=== PATIENT | female | born 2000 | race Caucasian/White ===

== ENCOUNTER 2024-07-27 19:11 | Emergency (ER) | payer OTHER, SELFPAY ==
[2024-07-27 19:11] VITALS: BMI 20.9
[2024-07-27 19:21] VITALS: BP 149/92
--- NOTE | 2024-07-27 19:21 | ED.GENMED ---
ED Provider Triage
<Edson Devries PA-C - Last Filed: 07/27/24 19:22>
-
Patient seen by provider in Triage?: Seen in Triage
Attestation: A medical screening examination has been initiated by a qualified medical provider. Based on the assessment performed at this time, it has been determined that an emergent medical condition may exist and the patient has been informed
that further medical evaluation and possible additional diagnostic testing may be needed.
HPI: 23-year-old female with past medical history of migraines presenting to the emergency department for migraine that is not relieved with her Emgality and Nurtec. Patient has a follow-up visit with neurologist on the but she has had a
gradually worsening headache for the last 3 days so decided come to the ER today. Only other associated symptoms of sensation of feeling flushed. No other concerns. Patient otherwise currently without focal neurologic deficits.
GENERAL: Alert , in no apparent distress
EYE: No visual abnormalities.
NECK: Trachea midline
ENT: No visible abnormalities.
LUNGS: No acute respiratory distress
NEUROLOGICAL: Alert and oriented
SKIN: Skin intact. No visible changes.
MUSCULOSKELETAL: Moving extremities normally
PSYCH: Normal and appropriate interaction.
This is a medical evaluation conducted in person to initiate diagnostic evaluation and provide initial therapeutics. Please see further documentation by the treating clinician.
History of Present Illness
<Edson Devries PA-C - Last Filed: 07/27/24 19:22>
General
Chief Complaint: Headache
Time Seen by Provider: 07/27/24 21:26
<Phil Cedlilo PA-C - Last Filed: 07/27/24 23:43>
History of Present Illness
History of Present Illness:
23-year-old female with history of chronic migraines on Emgality and Nurtec presents to the emergency department for evaluation of a persistent migraine for the past 3 days. Headache is associated with occasional visual lapses in the right eye as
well as right arm numbness. This is a consistent symptom for her however she notes nausea and hot flashes which are atypical. She has taken her Nurtec without relief. Denies any additional use of ifle-thc-nmltvlm medications. No fever, neck
pain, or vomiting.
Past History
<Edson Devries PA-C - Last Filed: 07/27/24 19:22>
Past History
ED Past Medical History: Psychiatric and Other (Bronchitis, migraine headaches)
ED Past Surgical History: None
Social History
Tobacco: Non-smoker
Alcohol: None
Personal: Single
Living: with family
Employment: Employed
Family History
Family History: Other (Noncontributory)
Review of Systems
<Phli Cedillo PA-C - Last Filed: 07/27/24 23:43>
Review of Systems
Allergies reviewed?: Yes
All Other Systems: ROS reviewed and negative except as documented in HPI and ROS
Phy Exam
<Phil Cedillo PA-C - Last Filed: 07/27/24 23:43>
Physical Exam
Physical Exam:
GEN: Well appearing, NAD, WDWN
HEENT: Oral mucosa moist, no scleral icterus, no nasal congestion
Cardiac: Regular rate
Lung: No respiratory distress, no tachypnea
MSK: No gross deformity or injuries
Skin: Good color, no pallor or jaundice, no rashes
Neuro: AO x3; CN II-XII grossly intact. BUE strength 5/5 in all andujar, sensation intact and symmetric. BLE strength 5/5 in all andujar, sensation intact and symmetric
Psych: Calm, cooperative
Course
<AMANDA Hilliard Last Filed: 07/27/24 19:22>
Orders/Labs/Results
Orders:
Orders
07/27/24 22:06
0.9% Sodium Chloride 500 ml [Nss] 500 ml IV BOLUS
Ketorolac [Toradol] 15 mg IV NOW STA
Magnesium Sulfate 2 Gram/50 ml [Magnesium Sulfate] 2 gram in 50 ml IV NOW
Metoclopramide [Reglan] 10 mg IV NOW STA
Vital Signs
Initial and Last Documented VS:
Initial Vital Signs
Temp Pulse Resp BP Pulse Ox
99.4 F 111 18 149/92 98
07/27/24 19:21 07/27/24 19:21 07/27/24 19:21 07/27/24 19:21 07/27/24 19:21
Last Documented Vital Signs
Temp Pulse Resp BP Pulse Ox
99.4 F 111 18 120/74 97
07/27/24 19:21 07/27/24 19:21 07/27/24 21:43 07/27/24 21:43 07/27/24 21:43
<Phil Cedillo PA-C - Last Filed: 07/27/24 23:43>
Orders/Labs/Results
Orders:
Orders
07/27/24 22:06
0.9% Sodium Chloride 500 ml [Nss] 500 ml IV BOLUS
Ketorolac [Toradol] 15 mg IV NOW STA
Magnesium Sulfate 2 Gram/50 ml [Magnesium Sulfate] 2 gram in 50 ml IV NOW
Metoclopramide [Reglan] 10 mg IV NOW STA
Vital Signs
Initial and Last Documented VS:
Initial Vital Signs
Temp Pulse Resp BP Pulse Ox
99.4 F 111 18 149/92 98
07/27/24 19:21 07/27/24 19:21 07/27/24 19:21 07/27/24 19:21 07/27/24 19:21
Last Documented Vital Signs
Temp Pulse Resp BP Pulse Ox
99.4 F 111 18 120/74 97
07/27/24 19:21 07/27/24 19:21 07/27/24 21:43 07/27/24 21:43 07/27/24 21:43
<Pihl Cedillo PA-C - Last Filed: 07/27/24 23:43>
MDM/Problems Addressed
MDM/Problems Addressed:
Patient presenting with typical migraine symptoms treated with standard migraine cocktail with resolution of symptoms. Recommend outpatient follow-up with her neurologist if symptoms are recurrent
<Phil Cedillo PA-C - Last Filed: 07/27/24 23:43>
*Critical Care Note
Total Time (30-74mins, 75-104mins- exclusive of procedures): Not Applicable
ED Attending Note
<Edson Devries PA-C - Last Filed: 07/27/24 19:22>
-
Portions of this chart may have been created with voice recognition software.� Occasional wrong word or��sound alike� substitutions may have occurred due to the inherent limitations of voice recognition software.
Discharge Plan
Departure
Patient Disposition: Home (Routine Discharge)
Date of Disposition: 07/27/24
Time of Disposition: 23:27
Patient with high blood pressure during this ER visit?: No
Discharge Problem:
Migraine
Instructions: Migraines (DC)
Prescriptions:
No Action
drospirenone-ethinyl estradiol 3-0.03 mg Tablet
1 tab PO DAILY
metoprolol tartrate 25 mg tablet
25 mg PO BID Qty: 20 0RF
venlafaxine [Effexor XR] 37.5 mg capsule,extended release 24hr
37.5 mg PO HS Qty: 10 0RF
Referrals:
NONE,* [Family Provider] -
Interventions
Interventions:
*Risk Screen - Suicide Last Done: 07/27/24 19:16
*General Assessment Last Done: 07/27/24 19:18
*Neglect/Abuse Screening Last Done: 07/27/24 19:18
ED- Fall Risk Assessment Last Done: 07/27/24 21:44
*ED COVID-19 Vaccine History Last Done: 07/27/24 19:18
ED- Neurological Assessment Last Done: 07/27/24 21:43
Discharge Date and Time
Print Language: UPPER SORBIAN
[2024-07-27 21:35] VITALS: BP 120/74
[2024-07-27 21:43] VITALS: BP 120/74
[2024-07-27 22:00] VITALS: BP 115/75
[2024-07-27] MEDS: REGLAN 10 MG IV (22:25)
[2024-07-27] MEDS: TORADOL 15 MG IV (22:25)
[2024-07-27] MEDS: MAGNESIUM SULFATE 50 IV (22:25)
[2024-07-27] MEDS: NSS 500 IV (22:26)
[2024-07-27 23:00] VITALS: BP 106/61
[2024-07-27 23:30] VITALS: BP 110/73
== END 2024-07-27 23:48 | disposition home or self-care (01) ==
LOC: EMR 19:11
PROVIDERS: EMERGENCY PHYSICIAN Student in an Organized Health Care Education/Training Program
DX: G43.909 Migraine, unspecified, not intractable, without status migrainosus (principal); Z79.899 Other long term (current) drug therapy
CPT/HCPCS: 99282

== ENCOUNTER → 2024-09-06 08:31 | Outpatient (REF) | payer OTHER, SELFPAY | LOC: HWRAD 08:31 | PROVIDERS: ATTENDING PHYSICIAN Obstetrics & Gynecology Gynecology; FAMILY PHYSICIAN Pediatrics | DX: N94.12 Deep dyspareunia (principal) | CPT/HCPCS: 76830; 76856 ==

== ENCOUNTER 2024-09-20 03:54 | Emergency (ER) | payer OTHER, SELFPAY ==
[2024-09-20 03:56] VITALS: BP 135/87
[2024-09-20 04:13] VITALS: BP 130/86
[2024-09-20] MEDS: NSS 1000 IV (04:25)
--- NOTE | 2024-09-20 04:45 | ED.GENMED ---
History of Present Illness
General
Chief Complaint: Headache
Source: patient and previous hospital records (Previous ED visits for similar complaints. Most recently July of this year)
Exam Limitations: none
Time Seen by Provider: 09/20/24 04:37
Nursing documentation reviewed up to this point in time: agreed with
History of Present Illness
History of Present Illness:
This is a 24-year-old female with history of chronic migraines, history of hemiplegic migraines. Follows with neurologist. Had been maintained on Emgality but more recently this was transition to daily Qulipta. She complains of generalized
headache that woke her from sleep a few hours ago. Headache accompanied with nausea, dry heaves. Similar to previous migraine headaches. She denies vision loss nor paresthesia.
Denies risk of .
She did try and take an oral dose of Compazine at home but immediately vomited.
Previous unremarkable neuroimaging.
Past History
Past History
ED Past Medical History: Psychiatric and Other (Bronchitis, migraine headaches)
ED Past Surgical History: None
Social History
Tobacco: Non-smoker
Alcohol: None
Personal: Single
Living: with family
Employment: Employed
Family History
Family History: Other (Noncontributory)
Phy Exam
Physical Exam
Physical Exam:
GENERAL: 24-year-old female appears her stated age, awake and alert, moderately anxious, tearful.
EYE: pupils equal and reactive. anicteric
NECK: Supple, nontender, no meningismus, no significant adenopathy.
ENT: oral mucosa is moist. No rhinorrhea.
CARDIAC: Regular rate and rhythm. no murmur.
LUNGS: Clear breath sounds bilaterally, no acute respiratory distress, no wheezes/rales/rhonchi
ABDOMEN: Soft, nondistended, without focal tenderness, no r/g, no cvat. normoactive BS.
NEUROLOGICAL: Alert and oriented x3, no focal neuro deficits. Gait is steady.
SKIN: Warm and dry, normal color, skin intact. No rash.
MUSCULOSKELETAL: No C/C/E. peripheral pulses are full and equal b/l. No palpable tenderness.
PSYCH: Normal and appropriate interaction.
Course
Orders/Labs/Results
Orders:
Orders
09/20/24 04:24
0.9% Sodium Chloride 1000 ml [Nss] 1,000 ml IV BOLUS
09/20/24 04:45
0.9% Sodium Chloride 1000 ml [Nss] 1,000 ml IV BOLUS
Ketorolac [Toradol] 30 mg IV NOW STA
Metoclopramide [Reglan] 10 mg IV NOW STA
09/20/24 05:34
Diphenhydramine [Benadryl] 25 mg IV NOW STA
Magnesium Sulfate 2 Gram/50 ml [Magnesium Sulfate] 2 gram in 50 ml IV NOW
Vital Signs
Initial and Last Documented VS:
Initial Vital Signs
Temp Pulse Resp BP Pulse Ox
98.0 F 81 18 135/87 99
09/20/24 03:56 09/20/24 03:56 09/20/24 03:56 09/20/24 03:56 09/20/24 03:56
Last Documented Vital Signs
Temp Pulse Resp BP Pulse Ox
98.0 F 81 18 101/54 100
09/20/24 03:56 09/20/24 03:56 09/20/24 03:56 09/20/24 06:00 09/20/24 06:00
MDM/Problems Addressed
Differential Diagnosis Includes:
24-year-old with history of migraine headaches presents with her typical migraine headache accompanied with nausea, dry heaves.
Prior history she does have history of hemiplegic migraines with occasional partial hemianopsia and paresthesia of upper extremity. Currently without the symptoms, no focal neurodeficits.
Generally does well with typical migraine cocktail and will trial an IV dose of Reglan, IV Toradol and IV fluids.
At this point no indication for imaging nor laboratory studies.
She follows regularly with neurologist and has an upcoming appointment this month.
Chronic conditions affecting care: Other (Migraine headache)
Acute Exacerbation and/or Progression of Chronic Illness: Other (Migraine headache)
*Pulse Oximetry
Patient hypoxic: no
*Critical Care Note
Total Time (30-74mins, 75-104mins- exclusive of procedures): Not Applicable
Update Note
Update Note:
06:45 am
Patient initially reported minimal improvement in headache after IV Toradol and IV Reglan. No further nausea however.
Promptly after IV Benadryl patient reports feeling markedly improved, headache has resolved.
She continues to have no focal neurodeficits.
Remains hemodynamically stable.
Will discharge to home with recommendations for prompt follow-up with her neurologist.
ED Attending Note
-
Portions of this chart may have been created with voice recognition software.� Occasional wrong word or��sound alike� substitutions may have occurred due to the inherent limitations of voice recognition software.
Discharge Plan
Departure
Patient Disposition: Home (Routine Discharge)
Date of Disposition: 09/20/24
Time of Disposition: 06:48
Patient with high blood pressure during this ER visit?: No
Condition: Good
Discharge Problem:
ACUTE MIGRAINE HEADACHE
Instructions: Migraines (DC)
Prescriptions:
No Action
drospirenone-ethinyl estradiol 3-0.03 mg Tablet
1 tab PO DAILY
metoprolol tartrate 25 mg tablet
25 mg PO BID Qty: 20 0RF
venlafaxine [Effexor XR] 37.5 mg capsule,extended release 24hr
37.5 mg PO HS Qty: 10 0RF
Referrals:
Sebastian Blackwell DO [Family Provider] -
Activity Restrictions/Additional Instructions:
Touch base with your neurologist today or tomorrow for follow-up visit.
Rest today, stay well-hydrated.
Continue your daily Qulipta.
Interventions
Interventions:
*Risk Screen - Suicide Last Done: 09/20/24 03:56
*General Assessment Last Done: 09/20/24 03:56
*Neglect/Abuse Screening Last Done: 09/20/24 03:56
ED- Fall Risk Assessment Last Done: 09/20/24 03:56
*ED COVID-19 Vaccine History Last Done: 09/20/24 03:56
Discharge Date and Time
Print Language: SLOVAK
[2024-09-20] MEDS: REGLAN 10 MG IV (04:49)
[2024-09-20] MEDS: TORADOL 30 MG IV (04:49)
[2024-09-20 05:00] VITALS: BP 124/66
[2024-09-20] MEDS: BENADRYL 25 MG IV (05:47)
[2024-09-20] MEDS: MAGNESIUM SULFATE 50 IV (05:47)
[2024-09-20 06:00] VITALS: BP 101/54
== END 2024-09-20 07:05 | disposition home or self-care (01) ==
LOC: EMR 03:54
PROVIDERS: EMERGENCY PHYSICIAN Emergency Medicine; FAMILY PHYSICIAN Pediatrics
DX: G43.909 Migraine, unspecified, not intractable, without status migrainosus (principal)
CPT/HCPCS: 99282; 96365; 96375

== ENCOUNTER 2024-11-13 13:44 | Outpatient (RCR) | payer OTHER, SELFPAY | END 2024-11-13 23:59 | disposition home or self-care (01) | LOC: RPT 13:44 | PROVIDERS: ATTENDING PHYSICIAN Obstetrics & Gynecology Gynecology; FAMILY PHYSICIAN Pediatrics | DX: N94.10 Unspecified dyspareunia (principal); M62.89 Other specified disorders of muscle; Z73.6 Limitation of activities due to disability | CPT/HCPCS: 97140; 97163; 97530 ==

== ENCOUNTER 2024-12-11 13:33 | Outpatient (RCR) | payer OTHER, SELFPAY | END 2024-12-11 23:59 | disposition home or self-care (01) | LOC: RPT 13:33 | PROVIDERS: ATTENDING PHYSICIAN Obstetrics & Gynecology Gynecology; FAMILY PHYSICIAN Pediatrics | DX: N94.10 Unspecified dyspareunia (principal); M62.89 Other specified disorders of muscle; Z73.6 Limitation of activities due to disability; R10.2 Pelvic and perineal pain | CPT/HCPCS: 97014; 97140; 97530 ==

== ENCOUNTER 2024-12-25 12:52 | Outpatient (RCR) | payer OTHER, SELFPAY | END 2024-12-25 23:59 | disposition home or self-care (01) | LOC: RPT 12:52 | PROVIDERS: ATTENDING PHYSICIAN Obstetrics & Gynecology Gynecology; FAMILY PHYSICIAN Pediatrics | DX: N94.10 Unspecified dyspareunia (principal); M62.89 Other specified disorders of muscle; Z73.6 Limitation of activities due to disability; R10.2 Pelvic and perineal pain | CPT/HCPCS: 97110; 97140; 97530 ==

== ENCOUNTER 2025-01-08 14:46 | Outpatient (RCR) | payer OTHER, SELFPAY | END 2025-01-08 23:59 | disposition home or self-care (01) | LOC: RPT 14:46 | PROVIDERS: ATTENDING PHYSICIAN Obstetrics & Gynecology Gynecology; FAMILY PHYSICIAN Pediatrics | DX: K59.00 Constipation, unspecified (principal); M62.89 Other specified disorders of muscle; Z73.6 Limitation of activities due to disability | CPT/HCPCS: 97110; 97112; 97140; 97163; 97530 ==

== ENCOUNTER → 2025-02-12 09:05 | Outpatient (REF) | payer OTHER, SELFPAY | LOC: HWRCS 09:05 | PROVIDERS: ATTENDING PHYSICIAN Internal Medicine Cardiovascular Disease; FAMILY PHYSICIAN Pediatrics | DX: R00.2 Palpitations (principal) | CPT/HCPCS: 93306 ==

== ENCOUNTER 2025-02-12 11:52 | Outpatient (RCR) | payer OTHER, SELFPAY | END 2025-02-12 23:59 | disposition home or self-care (01) | LOC: RPT 11:52 | PROVIDERS: ATTENDING PHYSICIAN Obstetrics & Gynecology Gynecology; FAMILY PHYSICIAN Pediatrics | DX: K59.00 Constipation, unspecified (principal); M62.89 Other specified disorders of muscle; Z73.6 Limitation of activities due to disability | CPT/HCPCS: 97014; 97112; 97140; 97530 ==

== ENCOUNTER 2025-02-27 13:51 | Outpatient (RCR) | payer OTHER, SELFPAY | END 2025-02-28 11:32 | disposition home or self-care (01) | LOC: RPT 13:51 | PROVIDERS: ATTENDING PHYSICIAN Obstetrics & Gynecology Gynecology; FAMILY PHYSICIAN Pediatrics | DX: K59.00 Constipation, unspecified (principal); M62.89 Other specified disorders of muscle; Z73.6 Limitation of activities due to disability | CPT/HCPCS: 97014; 97110; 97112; 97530 ==

== ENCOUNTER 2025-05-29 00:42 | Emergency (ER) | payer OTHER, SELFPAY ==
[2025-05-29 00:45] VITALS: BP 144/102
[2025-05-29 01:06] LABS: Hematocrit 40.3 % (37.0-47.0); Hemoglobin 13.0 g/dL (12.0-16.0); Mean Corp Hgb Conc. 32.3 g/dL (33.0-37.0); Mean Corpuscular Volume 77.1 fL (81.0-99.0); Nucleated Red Blood Cells % 0 %; Platelet Count 285 10^3/uL (130-400); Red Cell Dist. Width 14.6 % (11.5-14.5)
[2025-05-29 01:14] LABS: HCG, Serum Qualitative Screen Negative
[2025-05-29 01:19] LABS: ALT (SGPT) 16 U/L (0-35); AST (SGOT) 22 U/L (14-36); Albumin 4.9 g/dl (3.5-5.0); Alkaline Phosphatase 78 U/L (38-126); Blood Urea Nitrogen 14 mg/dl (7-17); Calcium 9.6 mg/dl (8.4-10.2); Carbon Dioxide 21 mmol/L (22-30); Chloride 104 mmol/L (98-107); Glucose 105 mg/dl (70-99); Potassium 3.9 mmol/L (3.5-5.1); Sodium 137 mmol/L (135-145); Total Protein 8.0 g/dl (6.3-8.2); eGFR > 60.00
[2025-05-29 03:33] VITALS: BP 121/63
[2025-05-29 03:35] VITALS: BP 121/63
[2025-05-29 03:45] VITALS: BMI 20.5
[2025-05-29] MEDS: NSS 1000 IV ×2 (04:07→05:41)
[2025-05-29] MEDS: ZOFRAN 4 MG IV (04:07)
[2025-05-29 05:23] VITALS: BP 123/64
[2025-05-29 05:28] LABS: Urine Character Clear (Clear)
[2025-05-29] MEDS: TORADOL 15 MG IV (05:39)
[2025-05-29] MEDS: REGLAN 10 MG IV (05:40)
[2025-05-29] MEDS: BENADRYL 25 MG IV (05:40)
[2025-05-29 05:44] LABS: Urine Squamous Cell >30 /LPF (Few)
[2025-05-29 05:45] LABS: Urine Red Blood Cell None Seen /HPF (0-2)
--- NOTE | 2025-05-29 05:46 | ED.GENMED ---
History of Present Illness
General
Chief Complaint: Abdominal Symptoms
Source: patient
Exam Limitations: none
Time Seen by Provider: 05/29/25 04:13
Nursing documentation reviewed up to this point in time: agreed with
History of Present Illness
History of Present Illness:
24-year-old female past medical history of migraines presenting to the emergency department today with concerns of nausea vomiting diarrhea over the past 3 days as well as diffuse headache. Denies any chest pain shortness of breath or fevers. No
significant abdominal pain.
Past History
Past History
ED Past Medical History: Psychiatric and Other (Bronchitis, migraine headaches)
ED Past Surgical History: None
Social History
Tobacco: Non-smoker
Alcohol: None
Personal: Single
Living: with family
Employment: Employed
Family History
Family History: Other (Noncontributory)
Review of Systems
Review of Systems
Allergies reviewed?: Yes
All Other Systems: ROS reviewed and negative except as documented in HPI and ROS
Phy Exam
Physical Exam
Physical Exam:
GENERAL: Alert , in no apparent distress
EYE: pupils equal and reactive
NECK: Supple, no significant adenopathy.
ENT: o/p clr, mmm.
CARDIAC: Regular rate and rhythm .
LUNGS: Clear breath sounds bilaterally, no acute respiratory distress, no wheezes/rales/rhonchi
ABDOMEN: Soft, without focal tenderness, no r/g, no cvat
NEUROLOGICAL: Alert and oriented, no focal neuro deficits
SKIN: Warm and dry, skin intact.
MUSCULOSKELETAL: No edema, well perfused.
PSYCH: Normal and appropriate interaction.
Course
Orders/Labs/Results
Orders:
Orders
05/29/25 00:47
Test Result ONCE
05/29/25 00:53
Complete Blood Count/With Diff Urgent
Comprehensive Metabolic Panel Urgent
HCG, Serum Qualitative Screen Urgent
05/29/25 03:50
Ondansetron Injectable [Zofran] 4 mg IV NOW STA
05/29/25 03:51
0.9% Sodium Chloride 1000 ml [Nss] 1,000 ml IV BOLUS
05/29/25 05:15
Urinalysis Reflex To Culture Urgent
Date Specimen was Collected: 05/29/25
Time Specimen was Collected: 05:14
Urine Microscopic Reflex Cult Urgent
Urine Culture Urgent
VIDAL Source: U
Specimen Description:
Date Specimen was Collected: 05/29/25
Time Specimen was Collected: 05:14
05/29/25 05:24
Diphenhydramine [Benadryl] 25 mg IV NOW STA
Ketorolac [Toradol] 15 mg IV NOW STA
Metoclopramide [Reglan] 10 mg IV NOW STA
05/29/25 05:25
0.9% Sodium Chloride 1000 ml [Nss] 1,000 ml IV BOLUS
Abnormal Lab Results
05/29/25 05/29/25
00:53 05:15
MCV 77.1 L fL
(81.0-99.0)
MCH 24.9 L pg
(27.0-31.0)
MCHC 32.3 L g/dL
(33.0-37.0)
RDW 14.6 H %
(11.5-14.5)
Carbon Dioxide 21 L mmol/L
(22-30)
Glucose 105 H mg/dl
(70-99)
Urine Ketones 3+ A
(Negative)
Leukocyte Esterase Rfl 1+ A
(Negative)
Urine Bacteria (Reflex) Many A
(Negative)
Urine Albumin (Reflex) 2+ A
(Neg - Trace)
05/29/25 00:53
05/29/25 00:53
Vital Signs
Initial and Last Documented VS:
Initial Vital Signs
Temp Pulse Resp BP Pulse Ox
98.7 F 112 24 144/102 100
05/29/25 00:45 05/29/25 00:45 05/29/25 00:45 05/29/25 00:45 05/29/25 00:45
Last Documented Vital Signs
Temp Pulse Resp BP Pulse Ox
98.9 F 91 16 123/64 99
05/29/25 04:11 05/29/25 05:23 05/29/25 03:35 05/29/25 05:23 05/29/25 05:48
MDM/Problems Addressed
MDM/Problems Addressed:
24-year-old female presenting to the emergency department today with concerns of nausea vomiting diarrhea as well as diffuse headache over the past 3 days. Initially was having profuse vomiting for the first 24 hours or so that is since improved
now nausea with liquid stool ongoing headache does have a history of migraines this seems to be consistent with a migraine at this point as far as headache is concerned. Patient given migraine cocktail with significant improvement of symptoms.
Stable for discharge at this time return precautions given.
*Pulse Oximetry
SaO2: 99
Oxygen Mode of Delivery: Room air
Patient hypoxic: no (99)
*Critical Care Note
Total Time (30-74mins, 75-104mins- exclusive of procedures): Not Applicable
ED Attending Note
-
Portions of this chart may have been created with voice recognition software.� Occasional wrong word or��sound alike� substitutions may have occurred due to the inherent limitations of voice recognition software.
Discharge Plan
Departure
Patient Disposition: Home (Routine Discharge)
Date of Disposition: 05/29/25
Time of Disposition: 06:16
Patient with high blood pressure during this ER visit?: No
Condition: Good
Covid-19: Not Applicable
Discharge Problem:
Vomiting and diarrhea
Instructions: Nausea and Vomiting, Adult (DC)
Prescriptions:
No Action
desogestrel-ethinyl estradiol [Apri] 0.15-0.03 mg Tablet
1 tab PO DAILY
Qulipta 60 mg Tablet
60 mg PO DAILY
sertraline 150 mg Capsule
150 mg PO DAILY
Referrals:
Sebastian Blackwell DO [Family Provider, Pediatrics]
Activity Restrictions/Additional Instructions:
You came to the emergency department today with concerns of GI symptoms. Here had a reassuring assessment. Please return for any worsening, new or concerning symptoms.
Interventions
Interventions:
*Risk Screen - Suicide Last Done: 05/29/25 00:45
*General Assessment Last Done: 05/29/25 03:45
*Neglect/Abuse Screening Last Done: 05/29/25 00:45
*ED- Fall Risk Assessment Last Done: 05/29/25 03:45
*ED COVID-19 Vaccine History Last Done: 05/29/25 03:45
GM-Kxcwcy-Yfgdxhzwhj Assessment Last Done: 05/29/25 04:15
Discharge Date and Time
Print Language: BURKIN[place]
== END 2025-05-29 06:25 | disposition home or self-care (01) ==
LOC: EMR 00:42
PROVIDERS: Emergency Medicine; Physician Assistant; EMERGENCY PHYSICIAN Student in an Organized Health Care Education/Training Program; FAMILY PHYSICIAN Pediatrics
DX: R11.2 Nausea with vomiting, unspecified (principal); R19.7 Diarrhea, unspecified; R51.9 Headache, unspecified
CPT/HCPCS: 96374; 96375; 96361; 99284; 80053; 81003; 81015; 84703; 85025; 87086

== ENCOUNTER 2025-06-01 10:56 | Inpatient (IN) | payer OTHER, SELFPAY ==
[2025-05-30 12:13] VITALS: BP 129/88
[2025-05-30 12:53] LABS: COVID-19 Antigen Negative (Negative)
--- NOTE | 2025-05-30 13:25 | ED.GENMED ---
History of Present Illness
General
Chief Complaint: Abdominal Symptoms
Source: patient
Exam Limitations: none
Time Seen by Provider: 05/30/25 13:18
Nursing documentation reviewed up to this point in time: agreed with
History of Present Illness
History of Present Illness:
Patient is a 24-year-old female who presents to the emergency department for intractable nausea, vomiting. Patient seen in ED yesterday with similar symptoms however discharged following improvement of symptoms. Patient states that she woke again
this morning around 4:30 AM and has had intractable vomiting since. She is unable to tolerate any p.o. intake including food/water. Patient also reports diffuse abdominal pain and headache.
Patient denies any known fever and states diarrhea has improved. She denies any dysuria or hematuria. She has no known sick contacts.
Patient does state that she has been smoking marijuana over the past 2 weeks.
Past History
Past History
ED Past Medical History: Psychiatric and Other (Bronchitis, migraine headaches)
ED Past Surgical History: None
Social History
Tobacco: Non-smoker
Alcohol: None
Personal: Single
Living: with family
Employment: Employed
Family History
Family History: Other (Noncontributory)
Review of Systems
Review of Systems
Allergies reviewed?: Yes
All Other Systems: ROS reviewed and negative except as documented in HPI and ROS
Phy Exam
Physical Exam
Physical Exam:
Vitals: Patient's vital signs are stable. Afebrile
General: Patient is well appearing, no acute distress
Skin: Warm and dry, no rashes or lesions
Head: Normocephalic, atraumatic
Eyes: Sclera nonicteric.
Throat: Dry mucous membranes. Protecting airway
Neck: Normal ROM, no cervical spine tenderness, no meningismus
Cardiac: Regular rate and rhythm, no murmurs.
Pulm: Normal respiratory effort, no wheezes, rales, rhonchi heard on exam
Abdomen: Abdomen soft with diffuse tenderness. No focal tenderness McBurney's point. Negative St sign.
Extremities: No evidence of cyanosis or edema. 2+ palpable DP pulses bilaterally
Neuro: AAOx3. Grossly tact.
Psychiatric: Normal affect.
Course
Orders/Labs/Results
Orders:
Orders
05/30/25 12:18
Test Result ONCE
05/30/25 12:24
COVID-19 Antigen Urgent
Source: Nasal Swab
05/30/25 13:35
CT Abd/pelvis W Iv Cont Urgent
Comment:
Reason For Exam: diffuse abdominal pain, intractable N/V
0.9% Sodium Chloride 1000 ml [Nss] 1,000 ml IV BOLUS
Diphenhydramine [Benadryl] 25 mg IV NOW STA
Ketorolac [Toradol] 15 mg IV NOW STA
Metoclopramide [Reglan] 10 mg IV NOW STA
05/30/25 13:37
Electrocardiogram (*1) Urgent
Reason for Study: QTc Monitoring
EKG- Treatment ONCE
05/30/25 14:12
Complete Blood Count/With Diff Urgent
Comprehensive Metabolic Panel Urgent
HCG, Serum Qualitative Screen Urgent
Lipase Urgent
Urinalysis Reflex To Culture Urgent
Date Specimen was Collected: 05/30/25
Time Specimen was Collected: 13:57
Urine Microscopic Reflex Cult Urgent
05/30/25 16:25
0.9% Sodium Chloride 1000 ml [Nss] 1,000 ml IV BOLUS
Acetaminophen [Tylenol] 650 mg PO NOW STA
05/30/25 16:42
Basic Metabolic Panel Urgent
05/30/25 17:13
Ondansetron Injectable [Zofran] 4 mg IV NOW STA
Abnormal Lab Results
05/30/25 05/30/25
14:12 16:42
MCV 79.2 L fL
(81.0-99.0)
MCH 25.1 L pg
(27.0-31.0)
MCHC 31.8 L g/dL
(33.0-37.0)
RDW 14.6 H %
(11.5-14.5)
Absolute Lymphs (auto) 0.9 L 10^3/uL
(1.2-3.4)
Neutrophils % 79.3 H %
(42.2-75.2)
Lymphocytes % 15.0 L %
(20.5-51.1)
Carbon Dioxide 12 L* mmol/L 15 L mmol/L
(22-30) (22-30)
Glucose 69 L mg/dl
(70-99)
Total Protein 8.3 H g/dl
(6.3-8.2)
Albumin 5.1 H g/dl
(3.5-5.0)
Urine Ketones 3+ A
(Negative)
Urine Albumin (Reflex) 1+ A
(Neg - Trace)
05/30/25 14:12
05/30/25 16:42
Vital Signs
Initial and Last Documented VS:
Initial Vital Signs
Temp Pulse Resp BP Pulse Ox
97.8 F 80 18 129/88 100
05/30/25 12:13 05/30/25 12:13 05/30/25 12:13 05/30/25 12:13 05/30/25 12:13
Last Documented Vital Signs
Temp Pulse Resp BP Pulse Ox
97.8 F 80 18 129/88 100
05/30/25 12:13 05/30/25 12:13 05/30/25 12:13 05/30/25 12:13 05/30/25 13:38
MDM/Problems Addressed
Differential Diagnosis Includes:
Not limited to: Viral gastroenteritis, acute dehydration, cyclical vomiting, cannabis hyperemesis, acute appendicitis, etc.
MDM/Problems Addressed:
24-year-old female with intractable nausea/vomiting as well as headache. Patient seen in ED yesterday with similar symptoms. No known fever or urinary symptoms. Diarrhea has improved. Vital stable on arrival�patient afebrile. On exam�patient
tearful. Abdomen soft diffuse tenderness. Cardio/pulmonary assessment unremarkable. Mucous membranes dry. Differential broad�possible gastroenteritis versus cyclical vomiting secondary to cannabis use. Doubt intra-abdominal infection however
would be on differential. ED plan: Labs, UA, viral studies. Will obtain CT scan and treat with IV fluids, IV antiemetics, migraine cocktail. Will closely monitor and reassess.
Update: Labs reviewed. No leukocytosis on CBC. Chemistry significant for acidosis with CO2 of 12 likely secondary to GI losses as well as hypoglycemia. CT scan pending.
Update: CT scan reveals possible mild colitis however no other acute abnormalities. I did repeat BMP following IV fluids, apple juice with improvement in blood glucose. Patient remains acidotic with CO2 of 15. Unfortunately�patient had immediate
return of nausea/vomiting after p.o. challenge with crackers. Given persistent nausea/vomiting despite multiple rounds of IV antiemetics unable to tolerate p.o. intake�will admit for further management. Overall suspicion is likely viral
gastroenteritis. Cannabis hyperemesis on differential however less likely as patient does not have history of prolonged marijuana use. Patient accepted to hospitalist service in stable condition.
Chronic conditions affecting care:
N/A
Acute Exacerbation and/or Progression of Chronic Illness:
N/A
*Radiology
Radiology exam reviewed: radiology read reviewed
*Pulse Oximetry
SaO2: 100
Oxygen Mode of Delivery: Room air
Patient hypoxic: no
*EKG
Interpreted by ED Provider?: Yes
EKG Intrepretation Date: 05/30/25
Interpretation: abnormal
Comparison EKG: changes noted
Heart Rate: 74
Rate: normal
Rhythm: sinus
[place]: normal axis
Interval: short [place]
QRS Pattern: normal QRS
Ischemia: non-specific ST changes
*Electric Scoop Operator Interpretation
Rate: Electric Scoop Operator- N/A
*Critical Care Note
Total Time (30-74mins, 75-104mins- exclusive of procedures): Not Applicable
Data Reviewed
Review of Other/Old Records Reveals: Discharge Summary (Discharge summary from 05/29/2025 with similar symptoms)
Patient Management
Discussion with other providers: Hospitalist
Escalation/DeEscalation of care consider admission/obs:
Admit for further management
ED Attending Note
-
Portions of this chart may have been created with voice recognition software.� Occasional wrong word or��sound alike� substitutions may have occurred due to the inherent limitations of voice recognition software.
Discharge Plan
Departure
Patient Disposition: Admit
Date of Disposition: 05/30/25
Time of Disposition: 17:22
Presentation/result/management discussed w/ accepting MD/DO: Hospitalist
Discharge Problem:
Intractable nausea and vomiting
Prescriptions:
No Action
desogestrel-ethinyl estradiol [Apri] 0.15-0.03 mg Tablet
1 tab PO DAILY
Qulipta 60 mg Tablet
60 mg PO DAILY
sertraline 100 mg Tablet
150 mg PO DAILY
Referrals:
Sebastian Blackwell DO [Family Provider, Pediatrics]
Interventions
Interventions:
*Risk Screen - Suicide Last Done: 05/30/25 12:17
*General Assessment Last Done: 05/30/25 12:17
*ED COVID-19 Vaccine History Last Done: 05/30/25 12:17
WW-Mrfomj-Wxirsnmwae Assessment Last Done: 05/30/25 14:41
Discharge Date and Time
Print Language: SLOVAK
[2025-05-30] MEDS: TORADOL 15 MG IV (13:44)
[2025-05-30] MEDS: REGLAN 10 MG IV (13:44)
[2025-05-30] MEDS: BENADRYL 25 MG IV (13:47)
[2025-05-30] MEDS: NSS 1000 IV ×3 (13:54→22:34)
[2025-05-30 14:22] LABS: Hematocrit 40.3 % (37.0-47.0); Hemoglobin 12.8 g/dL (12.0-16.0); Mean Corp Hgb Conc. 31.8 g/dL (33.0-37.0); Mean Corpuscular Volume 79.2 fL (81.0-99.0); Nucleated Red Blood Cells % 0 %; Platelet Count 312 10^3/uL (130-400); Red Cell Dist. Width 14.6 % (11.5-14.5)
[2025-05-30 14:25] LABS: Urine Character Slightly Cloudy (Clear)
[2025-05-30 14:32] LABS: HCG, Serum Qualitative Screen Negative
[2025-05-30 14:39] LABS: Urine Red Blood Cell None Seen /HPF (0-2)
[2025-05-30 14:43] LABS: ALT (SGPT) 20 U/L (0-35); AST (SGOT) 27 U/L (14-36); Albumin 5.1 g/dl (3.5-5.0); Alkaline Phosphatase 72 U/L (38-126); Blood Urea Nitrogen 11 mg/dl (7-17); Calcium 9.5 mg/dl (8.4-10.2); Carbon Dioxide 12 mmol/L (22-30); Chloride 104 mmol/L (98-107); Glucose 69 mg/dl (70-99); Lipase 164 U/L (23-300); Potassium 4.9 mmol/L (3.5-5.1); Sodium 135 mmol/L (135-145); Total Protein 8.3 g/dl (6.3-8.2); eGFR > 60.00
[2025-05-30] MEDS: TYLENOL 650 MG PO (16:37)
[2025-05-30 17:07] LABS: Blood Urea Nitrogen 9 mg/dl (7-17); Calcium 9.3 mg/dl (8.4-10.2); Carbon Dioxide 15 mmol/L (22-30); Chloride 106 mmol/L (98-107); Glucose 88 mg/dl (70-99); Potassium 4.8 mmol/L (3.5-5.1); Sodium 135 mmol/L (135-145); eGFR > 60.00
[2025-05-30] MEDS: ZOFRAN 4 MG IV (18:00)
[2025-05-30 19:20] VITALS: BP 138/67
--- NOTE | 2025-05-30 19:24 | HPS.HSE ---
Family Physician
-
Family Physician: Sebastian Blackwell
Chief Complaint
-
intractable nausea, vomiting
History of Present Illness
This note serves as an addendum to the H&P by wildlife enforcement major Morales MUÑOZ�
24F HX marijuana daily use seen at ER:
- pw intractable nausea, vomiting.
- Patient seen in ED yesterday with similar symptoms however discharged following improvement of symptoms.
- Patient states that she woke again this morning around 4:30 AM and has had intractable vomiting since.
- unable to tolerate any p.o. intake including food/water.
- reports diffuse abdominal pain and headache.
- she has been smoking marijuana over the past 2 weeks.
ROS
- denies any known fever and states diarrhea has improved.
- denies any dysuria or hematuria.
- no known sick contacts
Medical History
Past Medical History
Past Medical History: Reports Other (HX marijuana use )
Past Surgical History: Reports Other
Social History
Drug: Marijuana
Family History
Family History: Not pertinent
Allergies / Home Medications
Allergies reflects when Allergies were last updated in [facility].
Home Medications with original date entered in [facility]
Allergy/Medication List:
Allergies
Allergy/AdvReac Type Severity Reaction Status Date / Time
No Known Allergies Allergy Verified 05/30/25 12:18
Home Medications
atogepant 60 mg tablet (Qulipta) 60 mg PO DAILY 05/29/25
desogestrel 0.15 mg-ethinyl estradiol 0.03 mg tablet (Apri) 1 tab PO DAILY 05/29/25
sertraline 100 mg tablet 150 mg PO DAILY 05/30/25
Review of Systems
-
Constitutional: Reports No Symptoms
EENT: Reports No Symptoms
Respiratory: Reports No Symptoms
Cardiac: Reports No Symptoms
Abdomen/GI: Reports See HPI, Nausea and Vomiting
: Reports No Symptoms
Musculoskeletal: Reports No Symptoms
Skin: Reports No Symptoms
Neurological: Reports No Symptoms
Endocrine: Reports No Symptoms
Hematologic/Lymphatic: Reports No Symptoms
Psych: Reports No Symptoms
Physical Exam
Vital Signs
Vital Signs
Temp Pulse Resp BP Pulse Ox
98.5 F 76 18 138/67 97
05/30/25 19:20 05/30/25 19:20 05/30/25 12:13 05/30/25 19:20 05/30/25 19:20
Physical Exam
General: Well Developed, Well Nourished and No Apparent Distress
HEENT: NormoCephalic, Moist mucous membranes and Atraumatic
Respiratory: Clear
Cardiac: S1/S2 and Regular Rhythm; No Murmur or Rub
GI: Soft, Non Tender, Non Distended and Normal Bowel Sounds; No Organomegaly
Rectal: Deferred by Provider
Musculoskeletal: No Clubbing, No Cyanosis and No Edema
Skin: No Rash
Neuro: Nonfocal/grossly intact
Laboratory Results
-
05/30/25 14:12
05/30/25 16:42
Laboratory Results
Total Bilirubin 0.9 mg/dl (0.2-1.3) 05/30/25 14:12
AST 27 U/L (14-36) 05/30/25 14:12
ALT 20 U/L (0-35) 05/30/25 14:12
Alkaline Phosphatase 72 U/L (38-126) 05/30/25 14:12
Lipase 164 U/L (23-300) 05/30/25 14:12
Data Reviewed
-
CT Scan: Report Reviewed by me
Lab Data: Labs Reviewed by me
Impression/Plan
-
Vital Signs
Temp Pulse Resp BP Pulse Ox
98.5 F 76 18 138/67 97
08/14/25 19:20 05/30/25 19:20 05/30/25 12:13 05/30/25 19:20 05/30/25 19:20
CT Abd/pelvis W Iv Cont
- Mild wall thickening of the descending colon and sigmoid colon, nonspecific and possibly secondary to bowel collapse vs. mild colitis.
Last hospitalist admission:
DATE OF ADMISSION: 05/06/2025 - DATE OF DISCHARGE: 05/08/2025
DISCHARGE DIAGNOSES:
1. Sepsis due to acute right lower extremity cellulitis.
2. Atrial fibrillation, unknown type.
3. Essential hypertension.
4. Diabetes mellitus, type 2 without hyperglycemia.
ASSESSMENT & PLAN
Slowly improving Intractable nausea, vomiting concerning for Hyperemesis Cannabinoid syndrome
HX THC use
- NEG HCG
- clear diet - ADAT
- supportive care with IV NS, anti emetics PRN
Depression
- on Sertraline
DVT Px: SCD
Full code
Obs MS
[2025-05-31 00:20] VITALS: BP 122/68
[2025-05-31 01:45] VITALS: BMI 22.2
[2025-05-31] MEDS: ZOFRAN 4 MG IV (06:33)
[2025-05-31 06:37] LABS: Hematocrit 35.1 % (37.0-47.0); Hemoglobin 11.2 g/dL (12.0-16.0); Mean Corp Hgb Conc. 31.9 g/dL (33.0-37.0); Mean Corpuscular Volume 78.7 fL (81.0-99.0); Platelet Count 231 10^3/uL (130-400); Red Cell Dist. Width 14.7 % (11.5-14.5)
[2025-05-31 07:06] LABS: ALT (SGPT) 15 U/L (0-35); AST (SGOT) 21 U/L (14-36); Albumin 4.0 g/dl (3.5-5.0); Alkaline Phosphatase 58 U/L (38-126); Blood Urea Nitrogen 7 mg/dl (7-17); Calcium 8.7 mg/dl (8.4-10.2); Carbon Dioxide 16 mmol/L (22-30); Chloride 111 mmol/L (98-107); Estimated Creatinine Clearance > 125 ml/min; Glucose 77 mg/dl (70-99); Potassium 4.3 mmol/L (3.5-5.1); Sodium 137 mmol/L (135-145); Total Protein 6.7 g/dl (6.3-8.2); eGFR > 60.00
[2025-05-31] MEDS: ZOLOFT 150 MG PO (07:47)
[2025-05-31 07:51] VITALS: BP 125/72
[2025-05-31 07:52] VITALS: BMI 22.2
[2025-05-31] MEDS: NSS 1000 IV (08:40)
--- NOTE | 2025-05-31 08:55 | W.PN.HOSP.TC ---
Today's Communication/Plan
-
trail of Capsaicin
compazine PRN
change fluids to D5 1/2 NS
Assessment / Plan
Assessment / Plan
Ms. Danial Woody is a 24 yo woman with hx daily marijuana use who presents to the ER with intractable nausea and vomiting.
Abdomen/Pelvis CT
IMPRESSION:
Mild wall thickening of the descending colon and sigmoid colon, nonspecific and possibly secondary to bowel collapse versus a mild colitis.
Slowly improving Intractable nausea, vomiting concerning for Hyperemesis Cannabinoid syndrome
HX THC use
- NEG HCG
- clear diet - ADAT
- supportive care with IV NS - change to 1/2 NS
- trial of topical capsaicin
- IV compazine PRN
non-gap metabolic acidosis
hyperchloremic acidosis
-change fluids to 1/2 NS
Depression
- on Sertraline
DVT Px: SCD
Full code
Obs MS
Anticipated Discharge: 24 - 48 hours
Subjective/Interval History
-
Date of Service: May 31, 2025
continues to feel nauseated
has abdominal tenderness
no fevers/chills
no longer having diarrhea, did several days ago
Objective Data
-
Labs:
Laboratory Results
05/31/25
06:06
WBC 4.5 L
Hgb 11.2 L
Hct 35.1 L
Plt Count 231 D
Sodium 137
Potassium 4.3
Chloride 111 H
Carbon Dioxide 16 L
BUN 7
Creatinine 0.6
Glucose 77
Calcium 8.7
Total Bilirubin 0.9
AST 21
ALT 15
Alkaline Phosphatase 58
Vital Signs:
Vital Signs
Temp Pulse Resp BP Pulse Ox
98 F 79 16 125/72 98
05/31/25 07:51 05/31/25 07:51 05/31/25 07:51 05/31/25 07:51 05/31/25 07:51
Review of Systems
-
History Source: Patient
All other systems: Reviewed and negative
Physical Exam
-
General: No Apparent Distress and Conversant
HEENT: PERRLA
Respiratory: Clear to Auscultation; Negative Wheezes
Cardiac: Regular Rhythm and S1/S2
GI: Soft and Other (tenderness epigastric region)
Musculoskeletal: No Edema
Skin: Warm and Dry; Negative Rash
Neuro: AO x 3
Psych: Calm
Data Reviewed
-
Diagnostic Radiology: Report Reviewed by me
Labs: Labs Reviewed by me
[2025-05-31] MEDS: PROTONIX IV 40 MG IV (09:42)
[2025-05-31] MEDS: NSS (PRESERVATIVE FREE) 10 ML IV (09:42)
[2025-05-31] MEDS: D5/0.45%NACL 1000 IV ×2 (09:42→22:13)
[2025-05-31] MEDS: ZOSTRIX-HP 0.075% CREAM 1 APPLIC TOPICAL (09:43)
[2025-05-31 09:50] LABS: Magnesium 1.6 mg/dl (1.6-2.3)
--- NOTE | 2025-05-31 10:28 | CM ---
Patient seen bedside in ED. Initial assessment completed. Patient is a 24 y/o F, presenting w/ intractable nausea, vomiting. Patient was seen in the ED yesterday for similar symptoms however discharged following improvement of symptoms.
Patient resides w/ her grandmother and brother in a 2 story split level home, 2 steps to enter from the front, 5 steps to enter from the side door. 6 steps to the second level where bedrooms and bathroom are located. Patient is independent in all
areas.
Address, point of contact and insurance verified
PCP: Sebastian Blackwell
Pharmacy: [facility]
Patient admitted obs. OOBS form verbally reviewed, copy provided, copy given to to scan into chart.
Patient requested her brother to be added as a secondary contact. Updated [facility]/admissions
Plan: Home, no needs
--- NOTE | 2025-05-31 11:57 | PTCARENOTE ---
Pt ate 1/2 clears breakfast tray. C/O abd cramping but denies nausea. Tried capsaicin on abd but pt did not like it - felt burning - so wiped it off.
[2025-05-31 15:00] VITALS: BP 147/90
[2025-05-31] MEDS: TYLENOL 650 MG PO (22:14)
[2025-05-31 23:19] VITALS: BP 127/83
[2025-06-01] MEDS: ZOFRAN 4 MG IV ×2 (01:53→10:21)
[2025-06-01 06:00] VITALS: BMI 19.8
[2025-06-01] MEDS: TYLENOL 650 MG PO ×2 (06:46→20:46)
[2025-06-01] MEDS: COMPAZINE 5 MG IV (06:48)
--- NOTE | 2025-06-01 07:06 | W.PN.HOSP.TC ---
Today's Communication/Plan
-
replete Mg
prn antiemetics
IVF support
diet advance as tolerated
Assessment / Plan
Assessment / Plan
Physical Exam
General: No Apparent Distress and Conversant
HEENT: PERRLA
Respiratory: Clear to Auscultation; Negative Wheezes
Cardiac: Regular Rhythm and S1/S2
GI: Soft tenderness epigastric region bowel sounds present
Musculoskeletal: No Edema
Skin: Warm and Dry; Negative Rash
Neuro: AO x 3 conversant coherent
Psych: Calm
24F recent marijuana use presented with intractable nausea and vomiting.
Abdomen/Pelvis CT
IMPRESSION:
Mild wall thickening of the descending colon and sigmoid colon, nonspecific and possibly secondary to bowel collapse versus a mild colitis.
Slowly improving Intractable nausea, vomiting concerning for Hyperemesis Cannabinoid syndrome
HX THC use
- NEG HCG
- clear diet - ADAT to Regular
- supportive care with IVF
- IV compazine PRN
non-gap metabolic acidosis
hyperchloremic acidosis
-IVF D5W1/2NS
Hypomagnesemia likely 2/2 vomiting
monitor and replete as necessary
Depression
- on Sertraline
DVT Px: SCD
Full code
I spent a total of 40 minutes with the patient or on the floor. More than 50% of this time involved counseling and coordination of care.
Anticipated Discharge: Within 24 hours
Subjective/Interval History
-
Date of Service: June 01, 2025
Nauseous, vomiting early this morning.
Objective Data
-
Labs:
Laboratory Results
06/01/25
06:00
Sodium Pending
Potassium Pending
Chloride Pending
Carbon Dioxide Pending
BUN Pending
Creatinine Pending
Glucose Pending
Calcium Pending
Vital Signs:
Vital Signs
Temp Pulse Resp BP Pulse Ox
98.1 F 68 16 127/83 100
05/31/25 23:19 05/31/25 23:19 05/31/25 23:19 05/31/25 23:19 05/31/25 23:19
[2025-06-01 07:10] VITALS: BP 116/72
[2025-06-01 08:28] LABS: Blood Urea Nitrogen 6 mg/dl (7-17); Calcium 8.8 mg/dl (8.4-10.2); Carbon Dioxide 20 mmol/L (22-30); Chloride 105 mmol/L (98-107); Estimated Creatinine Clearance > 125 ml/min; Glucose 89 mg/dl (70-99); Magnesium 1.5 mg/dl (1.6-2.3); Potassium 3.7 mmol/L (3.5-5.1); Sodium 138 mmol/L (135-145); eGFR > 60.00
[2025-06-01] MEDS: MAGNESIUM SULFATE 100 IV (08:54)
[2025-06-01] MEDS: ZOLOFT 150 MG PO (08:55)
[2025-06-01] MEDS: PROTONIX IV 40 MG IV (08:55)
[2025-06-01] MEDS: NSS (PRESERVATIVE FREE) 10 ML IV (08:55)
[2025-06-01] MEDS: D5/0.45%NACL 1000 IV ×2 (10:21→23:40)
[2025-06-01 15:12] VITALS: BP 119/78
[2025-06-01 15:46] VITALS: BMI 19.8
[2025-06-01 23:59] VITALS: BP 126/74
[2025-06-02 06:00] VITALS: BMI 20.6
[2025-06-02 07:08] VITALS: BP 138/80
[2025-06-02 07:59] LABS: Hematocrit 38.8 % (37.0-47.0); Hemoglobin 12.5 g/dL (12.0-16.0); Mean Corp Hgb Conc. 32.2 g/dL (33.0-37.0); Mean Corpuscular Volume 78.7 fL (81.0-99.0); Platelet Count 241 10^3/uL (130-400); Red Cell Dist. Width 15.1 % (11.5-14.5)
[2025-06-02] MEDS: TYLENOL PO (08:10)
[2025-06-02] MEDS: ZOLOFT 150 MG PO (08:10)
[2025-06-02] MEDS: PROTONIX IV 40 MG IV (08:11)
[2025-06-02] MEDS: NSS (PRESERVATIVE FREE) 10 ML IV (08:11)
[2025-06-02 08:14] LABS: Blood Urea Nitrogen 6 mg/dl (7-17); Calcium 8.7 mg/dl (8.4-10.2); Carbon Dioxide 27 mmol/L (22-30); Chloride 105 mmol/L (98-107); Estimated Creatinine Clearance > 125 ml/min; Glucose 111 mg/dl (70-99); Magnesium 1.8 mg/dl (1.6-2.3); Potassium 3.4 mmol/L (3.5-5.1); Sodium 139 mmol/L (135-145); eGFR > 60.00
--- NOTE | 2025-06-02 09:00 | PTCARENOTE ---
Patient with flushing to the face, itchiness. No reported allergies. No reports of throat feeling tight/itchy, swallowing appropriately. No edema evident anywhere. Notified attending provider.
--- NOTE | 2025-06-02 09:15 | W.PN.HOSP.TC ---
Addendum entered and electronically signed by Rina Saeed MD 06/02/25 09:50:
updated mother (pt gave consent)
Mother would like pt to stay another day to make she can tolerate solid, ok with me
DC tmr
Original Note:
Today's Communication/Plan
-
DC today
Assessment / Plan
Assessment / Plan
Physical Exam
General: No Apparent Distress and Conversant
HEENT: PERRLA
Respiratory: Clear to Auscultation; Negative Wheezes
Cardiac: Regular Rhythm and S1/S2
GI: Soft tenderness epigastric region bowel sounds present
Musculoskeletal: No Edema
Skin: Warm and Dry; Negative Rash
Neuro: AO x 3 conversant coherent
Psych: Calm
24F recent marijuana use presented with intractable nausea and vomiting.
Abdomen/Pelvis CT:
Mild wall thickening of the descending colon and sigmoid colon, nonspecific and possibly secondary to bowel collapse versus a mild colitis.
A/P:
# Intractable nausea, vomiting concerning for Hyperemesis Cannabinoid syndrome
# HX THC use
Symptoms have resolved
test negative
Diet advanced to Regular and pt tolerated well
IV Compazine PRN
# non-gap metabolic acidosis
# hyperchloremic acidosis
s/p IVF D5W1/2NS
resolved
# Hypomagnesemia and hypokalemia likely 2/2 vomiting
repleted
# Depression on Sertraline
DVT Px: SCD
Full code
DW RN
Anticipated Discharge: Today
Subjective/Interval History
-
Date of Service: June 02, 2025
Objective Data
-
Labs:
Laboratory Results
06/02/25
07:26
WBC 4.4 L
Hgb 12.5
Hct 38.8
Plt Count 241
Sodium 139
Potassium 3.4 L
Chloride 105
Carbon Dioxide 27
BUN 6 L
Creatinine 0.6
Glucose 111 H
Calcium 8.7
Vital Signs:
Vital Signs
Temp Pulse Resp BP Pulse Ox
37.1 C 76 18 138/80 98
06/02/25 07:08 06/02/25 07:08 06/02/25 07:08 06/02/25 07:08 06/02/25 07:08
I&O
06/01/25 06/02/25 06/03/25
06:59 06:59 06:59
Intake Total 900 / 900 1280 / 1280
Balance 900 / 900 1280 / 1280
Review of Systems
-
History Source: Patient
All other systems: Reviewed and negative
Data Reviewed
-
Diagnostic Radiology: Report Reviewed by me
Labs: Labs Reviewed by me
[2025-06-02] MEDS: TYLENOL 650 MG PO ×2 (09:43→15:55)
[2025-06-02] MEDS: KCL 40 MEQ PO (09:43)
[2025-06-02] MEDS: BENADRYL 25 MG PO (09:44)
--- NOTE | 2025-06-02 10:30 | PTCARENOTE ---
Patient complaint of R Upper Arm pain/discomfort above IV site. Site is hot to the touch, tender to palpation and erythemic. IV Removed. Had VAT evaluate as well. Notified attending provider, patient to have US. Placed limb restriction on wrist
until testing complete.
[2025-06-02] MEDS: D5/0.45%NACL IV (12:18)
[2025-06-02 15:06] VITALS: BP 146/91
--- NOTE | 2025-06-02 22:06 | W.PN.UPDATE ---
Update Note
Progress Note Update
U/S completed, report reviewed. Occlusive thrombus in the mid to distal cephalic vein in the proximal right upper extremity (above the antecubital fossa). No deep venous (brachial vein) thrombus. Continue w/heat and elevation, limb restriction.
Thrombophlebitis, Started on Ancef 2 gm IV Q8H for skin/soft tissue. Re-evaluate/change as needed. Updated patient on results of U/S and plan, she is in agreement. Patient asked to call mother to explain, called and reviewed findings and plan,
mother also in agreement.
[2025-06-02] MEDS: ANCEF 10 IV (22:26)
--- NOTE | 2025-06-02 22:30 | PTCARENOTE ---
Notified House Provider, Bia Winter, that pt's US RUE showed an occlusive thrombus in the mid to distal cephalic vein in the proximal right upper extremity (above the antecubital fossa). Orders received to give one dose IV ancef. New PIV placed
by IV team and dose given.
[2025-06-02] MEDS: ZOFRAN ODT (ORALLY DISINTEGRATING) 4 MG PO (22:33)
[2025-06-02 23:19] VITALS: BP 131/85
[2025-06-03 06:00] VITALS: BMI 20.3
[2025-06-03 06:58] VITALS: BP 132/77
[2025-06-03] MEDS: ZOLOFT 150 MG PO (08:54)
[2025-06-03 09:10] LABS: Hematocrit 38.5 % (37.0-47.0); Hemoglobin 12.4 g/dL (12.0-16.0); Mean Corp Hgb Conc. 32.2 g/dL (33.0-37.0); Mean Corpuscular Volume 78.7 fL (81.0-99.0); Platelet Count 242 10^3/uL (130-400); Red Cell Dist. Width 15.5 % (11.5-14.5)
[2025-06-03 09:51] LABS: Blood Urea Nitrogen 10 mg/dl (7-17); Calcium 9.0 mg/dl (8.4-10.2); Carbon Dioxide 24 mmol/L (22-30); Chloride 103 mmol/L (98-107); Estimated Creatinine Clearance > 125 ml/min; Glucose 152 mg/dl (70-99); Magnesium 1.6 mg/dl (1.6-2.3); Potassium 3.8 mmol/L (3.5-5.1); Sodium 136 mmol/L (135-145); eGFR > 60.00
--- NOTE | 2025-06-03 10:17 | W.PN.HOSP.TC ---
Today's Communication/Plan
-
see A/P
Assessment / Plan
Assessment / Plan
Physical Exam
General: No Apparent Distress and Conversant
HEENT: PERRLA
Respiratory: Clear to Auscultation; Negative Wheezes
Cardiac: Regular Rhythm and S1/S2
GI: Soft tenderness epigastric region bowel sounds present
Musculoskeletal: No Edema
Skin: Warm and Dry; Negative Rash
Neuro: AO x 3 conversant coherent
Psych: Calm
24F recent marijuana use presented with intractable nausea and vomiting.
Abdomen/Pelvis CT:
Mild wall thickening of the descending colon and sigmoid colon, nonspecific and possibly secondary to bowel collapse versus a mild colitis.
A/P:
# Intractable nausea, vomiting concerning for Hyperemesis Cannabinoid syndrome
# HX THC use
Symptoms have resolved
test negative
Diet advanced to Regular and pt tolerated well
IV Compazine PRN
# non-gap metabolic acidosis
# hyperchloremic acidosis, resolved
s/p IVF D5W1/2NS
# Hypomagnesemia and hypokalemia likely 2/2 vomiting
repleted
# RUE superficial cephalic vein thrombosis due to IV site
No need for anticoagulation treatment for superficial vein thrombosis
recc to check RUE US in 2 weeks
cold compress followed by warm compress
cont empiric Antibiotic Keflex for 10 days
# Depression on Sertraline
DVT Px: SCD
Full code
DW RN
Anticipated Discharge: Today
Subjective/Interval History
-
Date of Service: June 03, 2025
Objective Data
-
Labs:
Laboratory Results
06/03/25
08:36
WBC 5.2
Hgb 12.4
Hct 38.5
Plt Count 242
Sodium 136
Potassium 3.8
Chloride 103
Carbon Dioxide 24
BUN 10
Creatinine 0.6
Glucose 152 H
Calcium 9.0
Vital Signs:
Vital Signs
Temp Pulse Resp BP Pulse Ox
36.8 C 72 16 132/77 99
06/03/25 06:58 06/03/25 06:58 06/03/25 06:58 06/03/25 06:58 06/03/25 06:58
I&O
06/02/25 06/03/25 06/04/25
06:59 06:59 06:59
Intake Total 900 / 900 1999
Balance 900 / 900 1999
Review of Systems
-
History Source: Patient
All other systems: Reviewed and negative
Physical Exam
-
General: Well Developed, Well Nourished, No Apparent Distress, Comfortable and Conversant
HEENT: Normocephalic and Atraumatic
Respiratory: Clear to Auscultation and Non Labored Respirations; Negative Wheezes or Accessory Resp Muscle Use
Cardiac: Regular Rhythm and S1/S2
GI: Soft, Nontender, Nondistended and Normal Bowel Sounds
Musculoskeletal: No Edema
Skin: Warm, Dry and Rash (mild RUE)
Neuro: Awake, Alert, Oriented and AO x 3
Psych: Calm and Intact Judgement/Insight
Data Reviewed
-
Ultrasound: Report Reviewed by me
Labs: Labs Reviewed by me
[2025-06-03] MEDS: KEFLEX 500 MG PO (11:32)
[2025-06-03] MEDS: MAGNESIUM SULFATE 100 IV (11:32)
[2025-06-03 12:39] VITALS: BP 129/78
--- NOTE | 2025-06-03 13:04 | CM ---
Patient for d/c home today.
Plan: home no needs.
[2025-06-03] MEDS: KEFLEX PO (13:06)
--- NOTE | 2025-06-03 13:07 | W.DCSUMMARY ---
Discharge Summary
Discharge Data
Date of Admission: 06/01/25
Date of Discharge: 06/03/25
Total time spent discharging patient (in min): 40
-
Pending Results: No
Hospital Course
Principal Diagnosis:
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
Resolved non-anion gap metabolic acidosis
RUE superficial cephalic vein thrombosis due to IV site
Chronic Diagnoses:�
History of cannabis use
Depression on Sertraline
Consultations:�
None
Procedures:�
None
Clinical course:�
This is a 24-year-old female, with past medical history as stated above, who presented with intractable nausea and vomiting.
Problem 1:
Intractable nausea and vomiting likely due to hyperemesis cannabis syndrome.
This was associated with non-anion gap metabolic acidosis, which resolved.
Of note, her test was negative.
Her diet was slowly advanced to regular which she tolerated well.
Problem 2:
RUE superficial cephalic vein thrombosis due to IV site.
There is no need for anticoagulation treatment for superficial vein thrombosis.
She can check repeat RUE US in 2-4 weeks with her PCP.
She was started with empiric antibiotic Keflex for thrombophlebitis coverage. She can continue with Keflex for 10 more days after discharge.
As for the rest of her medical problems, they were stable during her hospital stay.
Discharge Plan
-
Patient Disposition: Home (Routine Discharge)
Discharge Diagnosis/Procedures: Intractable nausea/vomiting (resolved) likely due to Hyperemesis Cannabinoid syndrome;
RUE superficial cephalic vein thrombosis due to IV site (started with Keflex to cover thrombophlebitis)
Condition: Good
Diet: As tolerated
Activity: As tolerated
Driving Restrictions: As prior to admission
Others Tests: RUE venous ultrasound in 2-4 weeks with your PCP
Referrals:
Sebastian Blackwell, DO [Family Provider, Pediatrics] - in less than 1 week
Prescriptions:
New
cephalexin 500 mg Capsule
500 mg PO QID 10 Days Qty: 40 0RF
(DME) Right UE venous ultrasound
See Rx Instructions .ROUTE .MEDSUPPLY Qty: 1 0RF
Rx Instructions:
in 2-4 weeks, result to your PCP
# RUE cephalic vein thrombosis
Continued
desogestrel-ethinyl estradiol [Apri] 0.15-0.03 mg Tablet
1 tab PO DAILY
Qulipta 60 mg Tablet
60 mg PO DAILY
sertraline 100 mg Tablet
150 mg PO DAILY
Discharge Orders:
Discharge Patient (As Directed); Ordered 06/03/25
Ordered By: Rina Saeed
Discharge Date and Time
Print Language: GERMAN
== END 2025-06-03 14:08 | disposition home or self-care (01) | DRG 392 ==
LOC: 4 EAST ACU 10:56
PROVIDERS: Emergency Medicine; Internal Medicine; Physician Assistant; Student in an Organized Health Care Education/Training Program; ADMITTING PHYSICIAN Internal Medicine; ATTENDING PHYSICIAN Internal Medicine; EMERGENCY PHYSICIAN Student in an Organized Health Care Education/Training Program; FAMILY PHYSICIAN Pediatrics
DX: R11.2 Nausea with vomiting, unspecified (principal); E87.20 Acidosis, unspecified; I82.611 Acute embolism and thrombosis of superficial veins of right upper extremity; F12.90 Cannabis use, unspecified, uncomplicated; F32.A Depression, unspecified; E87.6 Hypokalemia; E83.42 Hypomagnesemia; Z79.899 Other long term (current) drug therapy; Z11.52 Encounter for screening for COVID-19
CPT/HCPCS: 74177; 80048; 80053; 81003; 81015; 83690; 83735; 84100; 84703; 85025; 85027; 87811; 93005; 93971; 96361; 96374; 96375; 99285; Q9967

== ENCOUNTER → 2025-08-21 10:05 | Outpatient (REF) | payer OTHER, SELFPAY | LOC: HWRAD 10:05 | PROVIDERS: ATTENDING PHYSICIAN Obstetrics & Gynecology Gynecology; FAMILY PHYSICIAN Pediatrics | DX: N93.0 Postcoital and contact bleeding (principal) | CPT/HCPCS: 76830; 76856 ==